=== PATIENT | male | born 1955 | race Caucasian/White ===

== ENCOUNTER 2017-09-08 23:26 | Emergency (ER) | payer OTHER | END 2017-09-09 01:19 | disposition home or self-care (01) | LOC: D.ER 23:26 | DX: R11.10 Vomiting, unspecified (principal); R42 Dizziness and giddiness; I10 Essential (primary) hypertension; I25.10 Atherosclerotic heart disease of native coronary artery without angina pectoris; R00.1 Bradycardia, unspecified ==

== ENCOUNTER → 2019-05-20 08:29 | Outpatient (CLI) | payer OTHER ==
--- NOTE | 2019-05-22 16:51 | ST ---
PATIENT:APARNA ADLER MEDICAL RECORD: [id number] SEX: M LOCATION:[facility] ORDER #: ADMISSION DATE: 05/20/19 AGE OF PATIENT: 64 REFERRING PHYSICIAN: INTERPRETING PHYSICIAN: ALINE PALUMBO MD DATE OF SERVICE: 05/20/2019 INDICATION: Angina, coronary artery disease, shortness of breath, hypertension, cardiomyopathy. DESCRIPTION OF PROCEDURE: He was exercised on standard Lexiscan protocol with 28 mCi of sestamibi injected at peak stress, 9 mCi was previously for rest images. FINDINGS: Gated SPECT reveals a dilated cardiomyopathy, ejection fraction 33%. SPECT imaging: Cardiolite was used as myocardial perfusion agent. There is a fixed perfusion defect inferiorly. This includes the basal, mid, apical, inferior segments compatible with previous inferior myocardial infarction; however, there is reversibility laterally and anteriorly. This includes the basal mid apical lateral segments, basal mid apical anterior segments as well. The degree of reversibility is mild to moderate. The amount of myocardium involved is very large. OVERALL IMPRESSION: This is a high risk abnormal nuclear stress test, fixed perfusion defect inferiorly, reversible ischemia anteriorly and laterally suggestive of multivessel coronary artery disease. We will proceed with coronary angiography as followup study. TRANSINT:[id number] Voice Confirmation ID: [id number] DOCUMENT ID: [id number] ALINE PALUMBO MD at 1651 CC: ROSY BENTLEY [id number] DICTATION DATE: 05/20/19 1644 MULTIMEDIA PRODUCTION ASSISTANT: 05/21/19 0052 DEP CLI 05/20/19 [id number] [place] [address]
== END | disposition home or self-care (01) ==
LOC: D.HCCARDIO 08:29
PROVIDERS: ATTEND Internal Medicine Interventional Cardiology
DX: I25.10 Atherosclerotic heart disease of native coronary artery without angina pectoris (principal)

== ENCOUNTER 2019-06-10 09:59 | Outpatient (CLI) | payer OTHER ==
[~2019-06-10] VITALS: Ht 188 cm; Wt 129.5 kg
--- NOTE | ~2019-06-10 | OP ---
PATIENT NAME: APARNA ADLER MEDICAL RECORD: [id number] :57 LOCATION:[facility] ADMISSION DATE: SURGEON: ALINE PALUMBO MD DATE OF OPERATION: 06/10/2019 DATE OF SERVICE: 06/10/2019 PROCEDURES: 1. PTCA stent of LAD diagonal. 2. PTCA stent of left circumflex. 3. IFR LAD. 4. IFR RCA. 5. Left heart catheterization. 6. Selective coronary angiography. 7. Left ventriculogram. INDICATION: Angina, coronary artery disease, abnormal nuclear stress test. DESCRIPTION OF PROCEDURE IN DETAIL: After informed consent was obtained and after detailed explanation of risks, benefits as well as alternative therapies, the patient elected to proceed with angiogram and angioplasty. The right radial area was prepped and draped in normal sterile fashion. Right radial artery was cannulated via modified Seldinger technique with placement of 6-[place] sheath. All catheters exchanged through this sheath. FINDINGS: Left ventriculogram was performed in standard 30-degree MOCTEZUMA view, reveals good cardiac wall motion, ejection fraction 55%. SELECTIVE CORONARY ANGIOGRAPHY: 1. Left main is with no significant angiographic disease. 2. Left anterior descending has previously placed stents, has a questionable area of in-stent restenosis; however, IFR was normal. LAD diagonal system has 95% stenosis in the proximal aspect. 3. Left circumflex has 85-90% stenosis in the proximal aspect. This correlates with perfusion defect on nuclear stress testing. 4. The right coronary has a questionable stenosis proximally; however, IFR was normal. PTCA STENT OF THE LAD DIAGONAL: The stent used was a 2.0 x 12 mm [place]. Result was 0% residual stenosis. PTCA STENT OF THE LEFT CIRCUMFLEX: The stent used was a 3.5 x 15 mm [place]. Result was 0% residual stenosis. OVERALL IMPRESSION: Successful percutaneous transluminal coronary angioplasty stent of the left anterior descending diagonal and left circumflex going from 90% to 95% initial stenosis to 0% residual. TRANSINT:[id number] Voice Confirmation ID: [id number] DOCUMENT ID: [id number] OPERATIVE REPORT [id number] APARNA ADLER ALINE PALUMBO MD CC: [id number] DICTATION DATE: 06/10/19 1238 DEPARTMENT SECRETARY: 06/10/19 1248 [id number] [place] [address]
--- NOTE | ~2019-06-10 | HEMODYNAMI ---
PATIENT:APARNA ADLER MEDICAL RECORD: [id number] : 57 LOCATION:[facility] ADMISSION DATE: 06/10/19 Generatedon:06/10/201912:36 Patient name: APARNA ADLER Patient #: [id number] SSN: [id number] : 1955 Date of study: 06/10/2019 Page: Of Hemodynamic Procedure Report Patient Data Patient Demographics Procedure consent was obtained First Name: APARNA Gender: Male Last Name: VITOR : 1955 Patient #: [id number] Age: 64 year(s) Race: SSN: [id number] Additional ID: [id number] Contact details Address: [address] [place] [address] State: [place] City: [place] Zip code: [address] Past Medical History Allergies Allergen Reaction Date Comments Reported Other allergy 06/10/2019 statins Admission Admission Data Admission Date: 06/10/2019 Admission Time: 9:59 Arrival Date: 06/10/2019 Arrival Time: 11:30 Admit Source: Other Insurance Payor: Private health insurance Height (in.): 73.62 BSA: 2.51 (m2) Height (cm.): 187 BMI: 36.89 (kg/m2) Weight (lbs.): 284.4 Weight (kg.): 129 Lab Results Lab Result Date: 06/10/2019 Lab Result Time: 0:00 Biochemistry Name Units Result Min Max BUN mg/dl 18 --(---*)-- 7 18 Creatinine mg/dl 0.9 --(-*--)-- 0.6 1.3 CBC Name Units Result Min Max Hemoglobin g/dl 14.7 --(-*--)-- 13.5 17.5 Procedure Procedure Types Cath Procedure Diagnostic Procedure LHC LH w/Coronaries FFR/IVUS FFR Initial FFR Additional Sedation Charges Moderate Sedation up to 15 minutes Moderate Sedation up to 45 minutes PCI Procedure Coronary Stent Coronary Stent Initial x2 Procedure Description Procedure Date Procedure Date: 06/10/2019 Procedure Start Time: 12:06 Procedure End Time: 12:31 Procedure Staff Name Function Perico Yan RT Scrub Konstantin Guerrero RN Nurse Jamin Stephens MD Performing Physician Denisse Velazquez RT Scrub Mary Rivas RN Nurse Jamila Arnett RT Monitor Procedure Data Cath Procedure Fluoroscopy Diagnostic fluoroscopy Total fluoroscopy Time: 7.1 time: 7.1 min min Diagnostic fluoroscopy Total fluoroscopy dose: dose: 1671 mGy 1671 mGy Contrast Material Contrast Material Type Amount (ml) Isovue 300 130 Entry Location Entry Primary Successful Side Size Upsize Upsize Entry Closure Mistry ccessful Closure Location (Fr) 1 (Fr) 2 (Fr) Remarks Device Remarks Radial Right 6 Fr Mechanical artery Short Compression Estimated blood loss: 5 ml Diagnostic catheters Device Type Used For End Catheter Placement DIAGNOSTIC [place] 110cm 5 Multi-vessel Fr catheter ([id number]) Angiography Procedure Complications No complications Procedure Medications Medication Administration Route Dosage Oxygen etCO2 Nasal cannula 2 l/min Lidocaine 2% added to field 20 Heparin Flush Bag added to field 2 bags (1000units/500ml NS) 0.9% NaCl I.V. 100 ml/hr Radial Cocktail I.A. 1 syringe (Verapamil 2mg/Nitro 400mcg/Heparin 1500units) Versed I.V. 2 mg Fentanyl I.V. 100 mcg Versed I.V. 2 mg Fentanyl I.V. 50 mcg Heparin Bolus I.V. 4000 units Integrilin (Bolus I.V. 11.3 ml 2mg/ml) Plavix P.O. 600 mg Hemodynamics Rest BSA: 2.51 (m2) HGB: 14.7 (g/dl) O2 Consumption: Estimated: 280.59 (ml/min) O2 Co nsumption indexed: Estimated:111.79 (ml/min/m) Heart Rate: 56 (bpm) Pressure Samples Time Site Value (mmHg) Purpose Heart Use Rate(bpm) 12:08 LV 88/68,65 Snapshot 127 Snapshots Pre Cath Intra NCS Post Cath Vital Signs Time Heart Resp SPO2 etCO2 NIBP (mmHg) Rhythm Pain Sedation Rate (ipm) (%) (mmHg) Status Level (bpm) 11:12:31 57 16 99 36.6 160/96(117) SB 0 (11) 10(A) , No pain 11:16:37 59 14 100 47.8 156/100(120) SB 0 (11) 10(A) , No pain 11:21:35 56 15 98 2.2 Measuring SB 0 (11) 10(A) , No pain 11:27:11 54 15 99 20.2 152/87(115) SB 0 (11) 10(A) , No pain 11:37:55 59 16 97 22.4 142/92(119) SB 0 (11) 10(A) , No pain 11:42:08 56 15 98 11 135/93(112) SB 0 (11) 10(A) , No pain 11:46:18 56 18 97 10.4 136/100(116) SB 0 (11) 9(A) , No pain 11:50:30 55 15 96 14.9 144/85(118) SB 0 (11) 9(A) , No pain 11:54:44 57 18 96 6.7 132/90(109) SB 0 (11) 9(A) , No pain 11:58:50 59 16 98 9.7 129/94(110) SB 0 (11) 9(A) , No pain 12:02:58 58 13 98 10.4 129/90(103) SB 0 (11) 9(A) , No pain 12:07:04 58 13 97 11.9 138/98(113) SB 0 (11) 9(A) , No pain 12:11:16 67 14 96 13.4 134/85(109) SB 0 (11) 9(A) , No pain 12:15:23 67 13 98 19.4 132/92(109) SB 0 (11) 9(A) , No pain 12:19:29 63 15 97 36.6 144/95(119) SB 0 (11) 9(A) , No pain 12:23:39 59 15 97 14.2 141/96(126) SB 0 (11) 9(A) , No pain 12:27:49 59 19 98 14.9 142/95(116) SB 0 (11) 10(A) , No pain 12:31:59 56 14 99 0 151/93(127) SB 0 (11) 10(A) , No pain Medications Time Medication Route Dose Verified Delivered Reason Not es Effectiveness by by 11:27:30 Oxygen etCO2 2 l/min Jamin Pryor used for Nasal Tauth MD Guerrero automatic fabric cutter cannula 11:27:39 Lidocaine 2% added 20ml Jamin Neville for local to vial Angelo Stephens MD anesthetic field 11:27:46 Heparin Flush added 2 bags Jamin Neville used for Bag to Angelo Stephens MD procedure (1000units/500ml field NS) 11:28:00 0.9% NaCl I.V. 100 Jamin Pryor Per physician ml/hr Angelo Guerrero RN 11:30:34 Radial Cocktail I.A. 1 Jamin Pryor for (Verapamil syringe Angelo Guerrero RN vasodilation 2mg/Nitro 400mcg/Hepari 11:35:54 Versed I.V. 2 mg Jamin Pryor for sedation Angelo Guerrero RN 11:36:00 Fentanyl I.V. 100 mcg Jamin Pryor for sedation Angelo Guerrero RN 11:43:23 Versed I.V. 2 mg Jamin Pryor for sedation Angelo Guerrero RN 11:43:31 Fentanyl I.V. 50 mcg Jamin Pryor for sedation Angelo Guerrero RN 12:14:05 Heparin Bolus I.V. 4000 Jamin Hernandez for betsy ified units Angelo Rivas anticoagulation with Dr. KENDALL Stephens 12:14:20 Integrilin I.V. 11.3 ml Jamin Gardnera for was sourav (Bolus 2mg/ml) Angelo Rivas antiplatelet 8.7mL RN therapy 12:15:43 Plavix P.O. 600 mg Jamin Hernandez for Angelo Rivas antiplatelet RN therapy Procedure Log Time Note 10:39:17 Diagnostic Cath Status : Elective 10:43:51 ACC Patient presents with Non-STEMI CCS Anginal Class 3--Marked limitation of physical activity, angina occurs with ordinary activity.. 10:44:35 ACCPatient has been prescribed/administered the following anti-anginal medication within the last 2 weeks: Beta Kirill, ARB 10:44:40 Procedure Status Elective Heart Cath (OP). 10:44:43 Konstantin Guerrero RN sent for patient. Start room use. 10:44:44 Time tracking: Regular hours (M-F 7:00 - 5:00) 10:44:48 Plan of Care:Hemodynamics will remain stable., Cardiac rhythm will remain stable., Comfort level will be maintained., Respiratory function will remain adequate., Patient/ family verbilizes understanding of procedure., Procedure tolerated without complication., Recovers from procedure without complications.. 10:45:59 Informed consent obtained and on chart 10:47:42 Admit Source: Other 10:47:53 Arrival Date: 06/10/2019 11:30:00 AM 10:48:08 Insurance Payor : Private health insurance 10:50:20 Patient Height : 73.62 inches 10:50:24 Patient Weight : 284.4 lbs 11:10:37 Patient received from Pre/Post Procedure Room to CCL 2 Alert and oriented. Tansferred to table in Supine position. 11:10:39 Correct patient and procedure confirmed by team. 11:10:39 Warm blankets applied, and lan hugger turned on for patient comfort. 11:10:40 ECG and BP/O2 sat monitors applied to patient. 11:10:47 Vital chart was started 11:16:50 Baseline sample Acquired. 11:16:53 Rhythm: sinus rhythm 11:16:55 Full Disclosure recording started 11:16:59 H&P Date Dictated: 06/10/2019 Within 30 days and on chart., H&P Addendum completed by physician on day of procedure. (MUST COMPLETE FOR ALL OUTPATIENTS). 11:17:01 Pre-op teaching completed and patient verbalized understanding. 11:17:01 Pre-procedure instructions explained to patient. 11:17:03 Family in patients room. 11:17:04 Patient NPO since Midnight. 11:17:16 Patient allergic to Other allergystatins 11:17:27 Is the patient allergic to Iodine/contrast media? No. 11:17:28 Was the patient premedicated? No 11:17:30 Is patient on blood thinner?No 11:17:40 Patient diabetic? Yes. 11:17:41 If diabetic: On Metformin? No 11:18:44 Previous problem with sedation/anesthesia? No ? 11:18:46 Snore? Yes 11:18:47 Sleep apnea? No 11:18:48 Opens mouth fully? Yes 11:18:48 Deviated septum? No 11:18:49 Sticks out tongue? Yes 11:18:51 Airway obstruction? No ? 11:18:53 Dentures? No ? 11:18:59 Pre procedure: right dorsailis pedis pulse 2+ Normal; easily identifiable; not easily obliterated 11:19:01 Pre procedure: left dorsailis pedis pulse 2+ Normal; easily identifiable; not easily obliterated 11:19:03 Patient pain scale 0/10 ?. 11:19:08 IV patent on arrival in left forearm with 0.9% NaCl at [facility]. 11:19:10 Lab results completed and on chart. 11::20 Right Radial & Right Groin area was prepped with chlora-prep and draped in sterile fashion :: Sharps counted by scrub and verified by R.N. :: Alarms reviewed by R. N. 11::11 Lab Result : Hemoglobin 14.7 g/dl 11::11 Lab Result : Creatinine 0.9 mg/dl 11:: Lab Result : BUN 18 mg/dl 11:24:58 Vital chart was stopped 11::23 Zero performed for pressure channel P1 11:27:30 Oxygen 2 l/min etCO2 Nasal cannula was administered by Konstantin Guerrero RN; used for procedure; 11:27:39 Lidocaine 2% 20ml vial added to field was administered by Jamin Stephens MD; for local anesthetic; 11:27:46 Heparin Flush Bag (1000units/500ml NS) 2 bags added to field was administered by Jamin Stephens MD; used for procedure; 11:28:00 0.9% NaCl 100 ml/hr I.V. was administered by Konstantin Guerrero RN; Per physician; 11:30:34 Radial Cocktail (Verapamil 2mg/Nitro 400mcg/Heparin 1500units) 1 syringe I.A. was administered by Konstantin Guerrero RN; for vasodilation; 11::43 --------ALL STOP TIME OUT------ 11:30:43 Physician arrived 11:30:44 Final Timeout: patient, procedure, and site verified with staff and physician. All members of the team are in agreement. 11:30:47 Right Radial & Right Groin site verified by team. 11:30:50 Fire Safety Assessment: A--An alcohol-based skin anteseptic being used preoperatively., C--Open oxygen or nitrous oxide is being used., D--An ESU, laser, or fiber-optic light is being used. 11:30:53 Physical assessment completed. ASA score P 2 - A patient with mild systemic disease as per Jamin Stephens MD. 11:31:33 1) 90+ Normal kidney functon but urine findings or structural abnormalities or genetic trait point to kidney disease. 11:31:59 Maximum allowable contrast dose (3.7 X eGFR X 0.75)250 ml. 11:32:04 Sedation plan: IV Moderate Sedation Medication:Versed, Fentanyl 11:35:54 Versed 2 mg I.V. was administered by Konstantin Guerrero RN; for sedation; 11:36:00 Fentanyl 100 mcg I.V. was administered by Konstantin Guerrero RN; for sedation; 11:36:45 Vital chart was started 11:43:23 Versed 2 mg I.V. was administered by Konstantin Guerrero RN; for sedation; 11:43:31 Fentanyl 50 mcg I.V. was administered by Konstantin Guerrero RN; for sedation; 12:06:16 Procedure started. 12:06:52 Local anesthetic to right radial artery with Lidocaine 2% by Jamin Stephens MD.INITIAL ACCESS ONLY 12:07:01 A 6 Fr Short sheath was inserted into the Right Radial artery 12:07:06 Use device set Radial Dx or PCI 12:07:07 ACIST Syringe (35053) opened to sterile field. 12:07:08 Bag Decanter () opened to sterile field. 12:07:08 Medline Cath Pack ([id number]) opened to sterile field. 12:07:09 Tegaderm 4 x 4 (1626W) opened to sterile field. 12:07:09 ACIST Manifold (12639) opened to sterile field. 12:07:09 ACIST Hand Control (46151) opened to sterile field. 12:07:10 MBrace Wrist Support ([id number]) opened to sterile field. 12:07:11 SHEATH 6FR RAIN (8232508) opened to sterile field. 12:07:12 EMERALD Guide Wire (963-124) opened to sterile field. 12:07:38 A DIAGNOSTIC Carbon[place] 110cm 5 Fr catheter (392494) was advanced over the wire and used for Multi-vessel Angiography. 12:08:42 LV hemodynamics recorded. 12:08:43 LV gram done using MOCTEZUMA 12:08:46 Injector settings: Ml/sec: 5, Volume: 15, 12:08:52 EF : 55 % 12:09:08 LCA angiography performed. 12:09:11 Injector settings: Ml/sec: 3, Volume: 6, 12:10:19 CHOICE PT Extra Support 182cm wire ([id number]) opened to sterile field. 12:10:20 [place] Verrata Plus pressure wire (59817X) opened to sterile field. 12:10:21 INFLATOR Merit BasixCompak (JT9228) opened to sterile field. 12:10:44 GUIDE 6FR XBLAD 3.5 catheter ([id number]) opened to sterile field. 12:10:55 RCA angiography performed. 12:10:57 Injector settings: Ml/sec: 3, Volume: 6, 12:10:59 Catheter removed. 12:11:00 Proceeding to intervention. 12:12:00 GUIDE 6FR AR 1.0 catheter ([id number]) opened to sterile field. 12:13:34 6 Fr ar 1 guide catheter was inserted over the wire 12:13:45 FFR/IFR wire advanced. 12:13:50 Wire advanced across lesion. 12:14:05 Heparin Bolus 4000 units I.V. was administered by Mary Rivas RN; for anticoagulation; verified with Dr. Stephens 12:14:20 Integrilin (Bolus 2mg/ml) 11.3 ml I.V. was administered by Mary Rivas RN; for antiplatelet therapy; wasted 8.7mL 12:15:43 Plavix 600 mg P.O. was administered by Mary Rivas RN; for antiplatelet therapy; 12:16:06 unable to normalize verrata IFR wire; defective 12:16:13 [place] Verrata Plus pressure wire (69831Q) opened to sterile field. 12:16:35 Wire removed. 12:16:39 FFR/IFR wire advanced. 12:16:42 Baseline FFR 1. 12:16:43 Wire advanced across lesion. 12:17:48 mRCA lesion measured at 0.97 with IFR 12:17:58 Guide catheter removed. 12:17:58 Wire removed. 12:18:10 6 Fr xblad 3.5 guide catheter was inserted over the wire 12:18:24 FFR/IFR wire advanced. 12:18:28 Baseline FFR 1. 12:18:31 Wire advanced across lesion. 12:21:12 mLAD lesion measured at 0.91 with IFR 12:21:17 Wire removed. 12:21:22 choice pt wire advanced. 12:21:27 Wire advanced across lesion. 12:23:50 ACC Pre-intervention KOLBY Flow is 3. 12:24:04 Place stent Inflation Number: 1 A LATA RX 2.0 x 12 stent ([id number]) was prepped and advanced across the 1st Diag 95. The stent was deployed at 15 SUSANNE for 0:10 (min:sec) . 12:24:42 Wire redirected to lcx. 12:26:53 Place stent Inflation Number: 1 A LATA RX 3.5 x 15 stent ([id number]) was prepped and advanced across the Mid CX 90. The stent was deployed at 15 SUSANNE for 0:10 (min:sec) . 12:27:02 ACC Post-intervention KOLBY Flow is 3. 12:27:03 TR BAND Large ([id number]) opened to sterile field. 12:28:37 Wire removed. 12:28:37 Stent catheter was removed intact over wire. 12:28:38 Guide catheter removed. 12:28:52 Sheath removed intact; hemostasis achieved with Mechanical Compression to the Right Radial artery. 12:28:58 Procedure ended.(Physican Out) 12:29:06 Fluoroscopy time 07.10 minutes. 12:29:14 Fluoroscopy dose: 1671 mGy 12:29:14 Flurop Dose total: 1671 12:29:20 Dose Area Product 88584 mGy/cm. 12:29:29 Contrast amount:Isovue 300 130ml. 12:29:30 Sharps counted by scrub and verified by R.N. 12:30:05 TR band inflated with 9cc of air. 12:30:06 Insertion/operative site no bleeding no hematoma. 12:30:13 Post right radial artery:stable 12:30:17 Post Procedure Pulses reassessed and unchanged 12::21 Post procedure rhythm: unchanged. 12:30:24 Estimated blood loss: 5 ml 12:30:25 Post procedure instruction explained to patient.Patient verbalizes understanding. 12:30:26 Patient needs reinforcement of post procedure teaching. 12:31:19 Procedure type changed to Cath procedure, Diagnostic procedure, LHC, LHC w/Coronaries, FFR/IVUS, FFR Initial, FFR Additional, Sedation Charges, Moderate Sedation up to 15 minutes, Moderate Sedation up to 45 minutes, PCI procedure, Coronary Stent, Coronary Stent Initial x2 12:31:20 Procedure and supply charges have been captured, reviewed, submitted and are correct. 12:31:25 Procedure Complication : No complications 12:31:28 See physician's report for complete and final results. 12:31:32 Report given to Pre/Post Procedure Room. 12::35 Patient transfered to Pre/Post Procedure Room with Stretcher. 12::38 Full Disclosure recording stopped 12::38 Procedure ended. 12:31:47 ACC-PCI Only Patient was given prescriptions, or instructed by Jamin Stephens MD to start/continue the following medications upon discharge: Plavix 12:31:49 End room use (Document Last) Intervention Summary Intervention Notes Time ActionType Lesion and Equipment Used Action# Pressure Duration Attributes 12:24:04 Place stent 1st Diag LATA RX 2.0 x 1 15 00:10 12 stent ([id number]) 12:26:53 Place stent Mid CX LATA RX 3.5 x 1 15 00:10 15 stent ([id number]) Device Usage Item Name Manufacture Quantity Catalog Number Hospital Part Current Minimal Lot# / Charge Number Stock Stock Serial# Code ACIST Syringe Acist 1 51828 625459 937679 725266 20 (93123) Medical Systems Inc Medline Cath Medline 1 [id number] 465298 80774 332715 5 Pack ([id number]) Bag Decanter Microtek 1 887227 86679 313585 5 () Medical Inc. ACIST Hand Acist 1 85084 870226 086615 835923 5 Control Medical (16063) Systems Inc ACIST Manifold Acist 1 71975 880358 803039 065046 5 (73305) Medical Systems Inc Tegaderm 4 x 4 3M 1 1626W 117648 786918 016857 5 (1626W) MBrace Wrist Advanced 1 140-0250-00 699494 10221 081468 5 Support Vascular (755496853) Dynamics SHEATH 6FR Cardinal 1 9618588 992134 8291642 442830 5 RAIN (1090580) [facility] EMERALD Guide Cardinal 1 502-455 096150 039229 548896 5 Wire (502-477) Health DIAGNOSTIC Terumo 1 405013 719968 688030 190167 5 Carbon[place] 110cm 5 Fr catheter (904486) CHOICE PT Ramah 1 [id number] 033555 097196 851010 5 Extra Support Scientific 182cm wire (4378024R4) [place] 2 69764Q 735927 389145153 078087 5 Verrata Plus pressure wire (81176S) INFLATOR Merit Merit 1 RX1277 395294 137275 277611 15 Ala-Septic Medical (UV8840) GUIDE 6FR Cardinal 1 97232144 635340 577904 725121 10 XBLAD 3.5 Health catheter (32722126) GUIDE 6FR AR Medtronic 1 [id number] 051598 76595 096793 1 1.0 catheter (EC5RA54) LATA RX 2.0 x Medtronic 1 [id number] 729895 5216698 326137 5 [id number] 12 stent ([id number]) LATA RX 3.5 x Medtronic 1 [id number] 826366 1058335 466264 5 [id number] 15 stent ([id number]) TR BAND Large Terumo 1 [id number] 196048 332432 572694 40 ([id number]) Signature Audit [place] Stage Time Signature Unsigned Intra-Procedure 06/10/2019 Jamila Arnett 12:36:08 PM RT(R) Signatures Nurse : Konstantin Guerrero RN Signature : Date : Time : Performing Physician : Signature : Jamin Stephens MD Date : Time : Nurse : Mary Rivas RN Signature : Date : Time : Monitor : [facility] RT Signature : Date : Time : [address] [place] [address]
[2019-06-10] MEDS ORDERED: MOBIC7.5 MG PO (10:04)
[2019-06-10] MEDS ORDERED: TENORMIN25 MG PO (10:04)
[2019-06-10] MEDS ORDERED: LOSARTAN/HCT TAB 100 (10:05)
[2019-06-10] MEDS ORDERED: LOSARTAN/HCT TAB 100 PO (10:06)
[2019-06-10] MEDS ORDERED: CARDURA2 MG PO (10:07)
[2019-06-10] MEDS ORDERED: FEXOFENADINE HC60 MG PO (10:08)
[2019-06-10] MEDS ORDERED: METFORMIN HCL500 M1 PO (10:08)
[2019-06-10] MEDS ORDERED: MIRAPEX0.5 MG PO (10:09)
[2019-06-10 10:29] VITALS: BP 139/86; Ht 188 cm; Wt 129.5 kg
[2019-06-10 10:42] LABS: HEMATOCRIT 42.4 % (42.0-54.0); HEMOGLOBIN 14.7 g/dL (13.5-17.5); MCH 29.8 pg (26.0-34.0); MCHC 34.7 g/dL (31.0-37.0); MCV 85.8 fL (80.0-100.0); MEAN PLATELET VOLUME 10.1 fL (7.4-10.4); NEUTROPHILS 65.7 % (40-80); PLATELET COUNT 174 10x3/uL (130-400); RBC 4.94 10x6/uL (4.20-6.10); RDW 13.1 % (11.5-14.5)
[2019-06-10 11:10] LABS: ALT (SGPT) 40 U/L (10-68); CALC OSMOLALITY 279 mosm/kg (275-300); CALCIUM 8.4 mg/dL (8.5-10.1); CARBON DIOXIDE 31.1 mmol/L (21.0-32.0); CHLORIDE - SERUM 103 mmol/L (98-107); CHOL - HDL RATIO 5.5 ratio (2.3-4.9); CHOLESTEROL, TOTAL 154 mg/dL (0-200); CREATININE - SERUM 0.9 mg/dL (0.6-1.3); GLUCOSE 129 mg/dL (74-106); HDL CHOLESTEROL 28 mg/dL (32-96); LDL CHOLESTEROL 93 mg/dL (0-100); LDL-HDL RATIO 3.3 ratio (1.5-3.5); POTASSIUM - SERUM 3.9 mmol/L (3.5-5.1); SODIUM 138 mmol/L (136-145); TRIGLYCERIDE 167 mg/dL (30-200); UREA NITROGEN 18 mg/dL (7-18); eGFR NON AFRICAN AMERICAN > 90 mL/min (90-120)
--- NOTE | 2019-06-10 12:57 | NUR ---
RECEIVED PT FROM SALES APPRENTICE. PT IS ALERT, DENIES ANY C/O PAIN OR NAUSEA. TR BAND CDI, FINGERS WARM AND CAP REFILL IS BRISK. VSS. FAMIY AT BEDSIDE, CALL LIGHT IN REACH.
[2019-06-10] MEDS ORDERED: PLAVIX75 MG PO (13:05)
[2019-06-10] MEDS ORDERED: BAYER CHEWABLE81 MG PO (13:05)
--- NOTE | 2019-06-10 13:15 | NUR ---
SANDWICH AND PO FLUIDS SERVED. TR BAND IS CI, FINGERS WARM AND CAP REFILL IS BRISK. PT IS ALERT AND DENIES ANY C/O. VSS. FAMILY AT BEDSIDE.
--- NOTE | 2019-06-10 13:45 | NUR ---
PT IS SITTING UP IN BED, AT BEDSIDE. PT IS ALERT, DENIES ANY C/O. TR BAND IS CDI, FINGERS WARM AND CAP REFILL IS BRISK. PT DENIES ANY N/V DEFICIT TO HAND. VSS.
--- NOTE | 2019-06-10 14:06 | NUR ---
PT SLEEPING INTERMITTENTLY, AWAKENS EASILY. RESP WITH EASE ON O2 AT 2LPM VIA NC. SINUS BELKIS AT 59, DENIES ANY C/O CHEST PAIN. TR BAND IS CDI, FINGERS WARM AND CAP REFILL IS BRISK. AT BEDSIDE, CALL LIGHT IN REACH.
--- NOTE | 2019-06-10 14:39 | NUR ---
PT SLEEPING, RESP WITH EASE ON O2 AT 2LPM VIA NC. BP IS 147/88, SINUS BELKIS AT 57. TR BAND IS CDI, FINGERS WARM AND CAP REFILL IS BRISK. AT BEDSIDE.
--- NOTE | 2019-06-10 14:51 | NUR ---
PT DENIES ANY C/O. TR BAND IS CDI, FINGERS WARM AND CAP REFILL IS BRISK. SINUS BELKIS AT 59, BP IS 145/89. AT BEDSIDE, DENIES ANY NEEDS AT THIS TIME.
--- NOTE | 2019-06-10 15:30 | NUR ---
PT RESTING COMFORTABLY. RIGHT RADIAL TR BAND IN PLACE. 4cc OF AIR REMOVED FROM TR BAND. NO BLEEDING/HEMATOMA NOTED. VSS. NO OTHER NEEDS AT THIS TIME.
--- NOTE | 2019-06-10 15:45 | NUR ---
4cc OF AIR REMOVED FROM TR BAND. PT TOLERATED WELL. VSS. FAMILY AT BEDSIDE. CALL LIGHT WITHIN REACH.
--- NOTE | 2019-06-10 16:05 | NUR ---
TR BAND REMOVED AND DRESSING APPLIED. NO BLEEDING/HEMOTOMA NOTED. RIGHT WRIST BRACE IN PLACE. PT INSTRUCTED TO KEEP ON FOR 2 HOURS AFTER ARRIVAL HOME AND THEN HE MAY REMOVED. RIGHT ARM PIV D/C'D WITH CATH TIP INTACT. TOLERATED WELL. PT INSTRUCTED TO GET UP AND DRESSED. FAMILY AT BEDSIDE TO ASSIST.
--- NOTE | 2019-06-10 16:15 | NUR ---
DISCUSSED DISCHARGE INSTRUCTIONS WITH PT AND PT'S FAMILY. THEY VOICED UNDERSTANDING. PT AMBULATED TO RESTROOM. VOIDED WITHOUT DIFFICULTY. RIGHT WRIST DRESSING C/D/I. NO S/S OF HEMATOMA NOTED.
--- NOTE | 2019-06-10 16:27 | NUR ---
PT TAKEN OUT TO VEHICLE BY WHEELCHAIR. RIGHT WRIST DRESSING IN PLACE. NO BLEEDING/HEMATOMA NOTED. ALL BELONGINGS AND PAPERWORK IN HAND. NO S/S OF DISTRESS NOTED.
== END 2019-06-10 16:30 | disposition home or self-care (01) ==
LOC: D.CATH 09:59
PROVIDERS: ATTEND Internal Medicine Interventional Cardiology
DX: I25.119 Atherosclerotic heart disease of native coronary artery with unspecified angina pectoris (principal); Z01.812 Encounter for preprocedural laboratory examination

== ENCOUNTER 2020-03-20 19:39 | Observation (INO) | payer OTHER ==
[~2020-03-20] VITALS: Ht 188 cm; Wt 129.5 kg
--- NOTE | ~2020-03-20 | CN ---
PATIENT NAME:APARNA ADLER MEDICAL RECORD: [id number] : 57 LOCATION:[facility] D.2114 ADMIT DATE: 03/20/20 ACCOUNT: [id number] CONSULTING PHYSICIAN: JACQUELIN FERNANDEZ MD REFERRING PHYSICIAN: OTTO LANTIGUA MD DATE OF CONSULTATION: 03/21/2020 HISTORY OF PRESENT ILLNESS: A 65-year-old gentleman with a known history of coronary artery disease, status post intervention back in May of this year, had onset of chest tightness and pressure radiating to back with nausea yesterday, has been working fairly hard in the yard digging holes, etc., kind of a shortness of breath, reminiscent of previous angina, presented to the ER, found to have elevated cardiac enzymes consistent with NSTEMI. We are asked to see him concerning his cardiovascular status. PAST MEDICAL HISTORY: Includes; 1. History of dyslipidemia. 2. Diabetes mellitus. 3. Known history of coronary artery disease as described above. 4. Hypertension. MEDICATIONS: Typically include metformin 1 gram b.i.d., Mobic 7.5 every day, Cardura 2 mg p.o. daily, atenolol 25 mg p.o. every day. ALLERGIES: HMG-COA REDUCTASE INHIBITORS. SOCIAL HISTORY: Nonsmoker, nondrinker. Easily takes care of his ADLs, stays quite active. REVIEW OF SYSTEMS: The patient reports easy bruising but reports no swollen glands. The patient reports no fever, no night sweats, no significant weight gain, no significant weight loss. No significant exercise tolerance. The patient reports no dry eyes, no irritation, no vision change. Patient reports no difficulty hearing and no ear pain. Patient reports no frequent nose bleeds or nose and sinus problems. Patient reports on arm pain on exertion. No shortness of breath while lying down. No history of heart murmur. Patient reports no cough, no wheezing or coughing up blood. Patient reports no abdominal pain, no vomiting. Normal appetite. No diarrhea and not vomiting blood. No nausea and no constipation. Patient reports no incontinence. No difficulty urinating. No hematuria. No increased frequency. Patient reports no muscle aches. No weakness, no arthralgias, no back pain. No swelling of the extremities. Patient reports no abnormal mole, no jaundice, no rashes. Reports no loss of consciousness. No weakness and no numbness. No seizures, dizziness, or headaches. The patient reports no depression, no sleep disturbance, feeling safe in a relationship and no alcohol abuse. Patient reports on fatigue. Reports no runny nose or sinus pressure. No itching, no hives, and no frequent sneezing. PHYSICAL EXAMINATION: GENERAL: Well-developed, well-nourished gentleman, in no acute distress, appears stated age. VITAL SIGNS: Blood pressure 113/71, pulse 73 and regular. HEENT: Normocephalic, atraumatic. NECK: No JVD or bruit. HEART: Regular. Questionable S4 gallop. CONSULT REPORT [id number] APARNA ADLER LUNGS: Good air excursion. ABDOMEN: Soft, nontender. EXTREMITIES: Pulses 2+ with no edema. DIAGNOSTIC DATA: EKG shows nonspecific ST-T changes inferolaterally. IMPRESSION: NSTEMI. No history of coronary artery disease. PLAN: Diagnostic angiography, intervention based on above. TRANSINT:[id number] Voice Confirmation ID: [id number] DOCUMENT ID: [id number] JACQUELIN FERNANDEZ MD CC: [id number] DICTATION DATE: 03/21/2046 LABEL PASTER: 03/21/20 1431 ADM IN [facility] [address] [place] [address]
--- NOTE | ~2020-03-20 | EC ---
PATIENT:APARNA ADLER DATE OF SERVICE: 03/20/20 SEX: M MEDICAL RECORD: [id number] DATE OF : 57 LOCATION:D.M2 D.211 AGE OF PATIENT: 65 ADMISSION DATE: 03/20/20 REFERRING PHYSICIAN: INTERPRETING PHYSICIAN: JACQUELIN FERNANDEZ MD ECHOCARDIOGRAM REPORT ECHO CHARGES 4 ECHO COMPLETE Date: 03/21/20 CLINICAL DIAGNOSIS: CP ECHOCARDIOGRAPHIC MEASUREMENTS (adult normal given) AC root (d.<3.7cm) 3.8 cm LV Septum d (<1.2 cm> 1.2 cm Valve Excursion 2.3 cm LV Septum (systole) 1.5 cm Left Atria (s.<4.0cm> 5.1 cm LVPW d(<1.2cm) 1.2 cm RV (d.<2.3cm) 3.1 cm LVPW (sytole) 1.9 cm LV diastole(<5.6CM) 6.6 cm MV E-F(>70mm/sec) cm LV systole 4.9 cm LVOT Diameter 2.1 cm MV exc.(>10mm) cm Est.ejection fraction (50-75%) % DOPPLER: LVIT cm/sec A 54.0 cm/sec E 102 cm/sec LA cm/sec RVSP 25.1 mmHg LVOT 102 cm/sec AOP1/2T m/s Asc. Ao 150 cm/sec RVOT 63.0 cm/sec RA cm/sec PA 83.0 cm/sec AV Gradient Peak 9.0 mmHg AV Mean 4.3 mmHg AV Area 2.3 cm MV Gradient Peak 4.5 mmHg MV Mean 1.6 mmHg MV Area cm COMMENTS: Link Assembler: 1 RINKU PALACIOSOE Apprentice Cosmetologist: 3 Dr. Schwartz TAPE# PACS Pericardial Effusion N DATE OF SERVICE: Adequate 2D, color flow imaging, spectral Doppler, and M-Mode. Borderline LVH. LV internal dimensions are dilated. LV shows mild global hypo with EF lower limits of normal to mildly reduced at 45% to 50%. Aortic valve is tricuspid. No evidence of stenosis by Doppler interrogation. Left atrium is dilated at 5.1 cm. Mitral valve shows no prolapse. Trace MR. Right-sided chambers are grossly normal. Trace TR. ECHOCARDIOGRAM REPORT [id number] APARNA ADLER TRANSINT:[id number] Voice Confirmation ID: [id number] DOCUMENT ID: [id number] JACQUELIN FERNANDEZ MD CC: [id number] DICTATION DATE: 03/22/20 1309 DEPUTY INSURANCE COMMISSIONER: 03/22/20 190 DIS IN 03/21/20 [place] [id number] [place] [id number]
--- NOTE | ~2020-03-20 | OP ---
PATIENT NAME: APARNA ADLER MEDICAL RECORD: [id number] :57 LOCATION:D. D.2114 ADMISSION DATE:03/20/20 SURGEON: JACQUELIN FERNANDEZ MD DATE OF OPERATION: 03/21/2020 PROCEDURE: Left heart catheterization, selective coronary angiography, right radial approach. CATHETERS: Radial sheath, Brighton catheter. The procedure was well tolerated. The patient returned to the ulloa, sheath removed. TR band was placed. FINDINGS: Left ventriculography in 30-degree MOCTEZUMA view: Normal wall motion and normal systolic function. CORONARY ANATOMY: LEFT MAIN: Left main is free of disease. LAD: Distal 1/3 has about 80% stenosis. Again, this is quite distal. The diagonal, previous diagonal stent itself has an 80% stenosis with some thrombus noted, best seen in the MOCTEZUMA cranial view. CIRCUMFLEX: Free of disease. RIGHT CORONARY ARTERY: Luminal irregularities, nothing flow obstructive. PLAN: Intervention of the LAD diagonal momentarily. DESCRIPTION OF PROCEDURE: Using indwelling sheath, XB LAD guiding catheter provided good guide catheter support. The first diagonal stent was addressed with a 2.5 x 12 mm balloon up to 10 atmospheres for 45 seconds, excellent resolution of restenosis and resolution of thrombus with no significant residual. Next, the wire was placed distally in the LAD and is followed by the same 2.5 x 12 balloon up to 10 atmospheres, showed excellent resolution, de alejandra 80% stenosis, no significant residual. KOLBY flow was 3 throughout the procedure. Heparin and Integrilin were used during the case. Sheath was closed with TR band. IMPRESSION: 1. Successful WARRANTY MANAGER to diagonal of restenosis stent. 2. Successful PTCA to a distal LAD lesion. TRANSINT:[id number] Voice Confirmation ID: [id number] DOCUMENT ID: [id number] JACQUELIN FERNANDEZ MD CC: [id number] DICTATION DATE: 03/21/20 1103 TOWER DIRECTOR: 03/21/20 1642 ADM IN [facility] [address] [place] [address]
--- NOTE | ~2020-03-20 | HEMODYNAMI ---
PATIENT:APARNA ADLER MEDICAL RECORD: [id number] : 57 LOCATION:[facility] D.2114 ADMISSION DATE: 03/20/20 Generatedon:03/21/202010:48 Patient name: APARNA ADLER Patient #: [id number] SSN: [id number] : 1955 Date of study: 03/21/2020 Page: Of Hemodynamic Procedure Report Patient Data Patient Demographics Procedure consent was obtained First Name: APARNA Gender: Male Last Name: VITOR : 1955 Patient #: [id number] Age: 65 year(s) Race: SSN: [id number] Additional ID: [id number] Contact details [address]: [address] [place] [address] State: [place] City: [place] Zip code: [address] Past Medical History Allergies Allergen Reaction Date Comments Reported Other allergy 06/10/2019 statins Other allergy 03/21/2020 Admission Admission Data Admission Date: 03/20/2020 Admission Time: 20:45 Room #: D.2114 Lab Results Lab Result Date: 03/21/2020 Lab Result Time: 0:00 Biochemistry Name Units Result Min Max BUN mg/dl 21 --(----)-* 7 18 Creatinine mg/dl 1.1 --(--*-)-- 0.6 1.3 eGFR ml/min 70.26114 *-(----)-- 90 120 NONAFRICAN CBC Name Units Result Min Max Hemoglobin g/dl 14.7 --(-*--)-- 13.5 17.5 Procedure Procedure Types Cath Procedure Diagnostic Procedure C [facility] w/Coronaries Sedation Charges Moderate Sedation up to 30 minutes PCI Procedure PTCA PTCA Initial Hemochron ACT Test Procedure Description Procedure Date Procedure Date: 03/21/2020 Procedure Start Time: 10:20 Procedure End Time: 10:45 Procedure Staff Name Function Polo Bautista MD Performing Physician Nelly Vogel RT Monitor Radha Espinoza RT Scrub Mary Rivas RN Nurse Procedure Data Cath Procedure Fluoroscopy Diagnostic fluoroscopy Total fluoroscopy Time: 7.4 time: 7.4 min min Diagnostic fluoroscopy Total fluoroscopy dose: dose: 1501 mGy 1501 mGy Contrast Material Contrast Material Type Amount (ml) Isovue 300 106 Entry Location Entry Primary Successful Side Size Upsize Upsize Entry Closure Mistry ccessful Closure Location (Fr) 1 (Fr) 2 (Fr) Remarks Device Remarks Radial Right 6 Fr Mechanical artery Short Compression Estimated blood loss: 5 ml Diagnostic catheters Device Type Used For End Catheter Placement DIAGNOSTIC Severy 110cm 5 Procedure Fr catheter ([id number]) Procedure Complications No complications Procedure Medications Medication Administration Route Dosage 0.9% NaCl I.V. 100 ml/hr Oxygen etCO2 Nasal cannula 2 l/min Lidocaine 2% added to field 20 Heparin Flush Bag added to field 2 bags (1000units/500ml NS) Radial Cocktail added to field 1 syringe (Verapamil 2mg/Nitro 400mcg/Heparin 1500units) Versed I.V. 2 mg Fentanyl I.V. 50 mcg Versed I.V. 2 mg Fentanyl I.V. 50 mcg Heparin Bolus I.V. 5000 units Integrilin (Bolus I.V. 11.3 ml 2mg/ml) Integrilin (Bolus wasted 8.7 ml 2mg/ml) Integrilin Drip I.V. drip 10 ml/hr (75mg/100ml) Plavix P.O. 600 mg Hemodynamics Rest HGB: 14.7 (g/dl) Heart Rate: 59 (bpm) Pressure Samples Time Site Value (mmHg) Purpose Heart Use Rate(bpm) 10:22 LV 108/50,31 Snapshot 96 Gradients Valve Time Site Site Mean SEP/DFP Peak To Heart Use 1 2 (mmHg) (sec/min) Peak Rate (mmHg) (bpm) Aortic 10:22 LV AO 83 Snapshots Pre Cath Intra NCS Post Cath Vital Signs Time Heart Resp SPO2 etCO2 NIBP (mmHg) Rhythm Pain Sedation Rate (ipm) (%) (mmHg) Status Level (bpm) 10:09:50 59 13 97 0.7 164/100(136) NSR 0 (11) 10(A) , No pain 10:14:25 61 13 97 18.6 158/99(126) NSR 0 (11) 10(A) , No pain 10:19:01 56 11 98 26.9 142/87(122) SB 0 (11) 10(A) , No pain 10:23:34 58 16 97 24.7 137/81(106) SB 0 (11) 9(A) , No pain 10:28:00 69 12 98 0 141/91(119) NSR 0 (11) 9(A) , No pain 10:32:28 61 11 97 11.2 148/86(116) NSR 0 (11) 9(A) , No pain 10:36:49 57 11 98 18.6 143/93(107) SB 0 (11) 9(A) , No pain 10:41:13 59 13 98 20.9 134/92(113) SB 0 (11) 10(A) , No pain Medications Time Medication Route Dose Verified Delivered Reason Not es Effectiveness by by 10:08:30 0.9% NaCl I.V. 100 Polo Mary used for ml/hr LilyRodolfo Rivas procedure MD ARGUETA 10:08:36 Oxygen etCO2 2 l/min Polo Mary used for Nasal [facility] procedure cannula MD ARGUETA 10:08:41 Lidocaine 2% added 20ml Polo Silvaory for local to vial [facility] anesthetic field MD PONCE 10:08:49 Heparin Flush added 2 bags Polo Cuellar used for Bag to [facility] procedure (1000units/500ml field MD PONCE NS) 10:08:55 Radial Cocktail added 1 Polo Polo used for (Verapamil to syringe [facility] procedure 2mg/Nitro field MD PONCE 400mcg/Hepari 10:14:32 Versed I.V. 2 mg Polo Mary for sedation St Rodolfo Rivas MD, RN 10:14:41 Fentanyl I.V. 50 mcg Polo Mary for sedation St Rodolfo Rivas MD, RN 10:20:49 Versed I.V. 2 mg Polo Mary for sedation St Rodolfo Rivas MD, RN 10:20:55 Fentanyl I.V. 50 mcg Polo Mary for sedation St Rodolfo Rivas MD, RN 10:31:34 Heparin Bolus I.V. 5000 Polo Mary for betsy ified units [facility] anticoagulation with Dr. MD ARGUETA Lockett 10:31:52 Integrilin I.V. 11.3 ml Polo Mary for (Bolus 2mg/ml) St Rodolfo Rivas antiplatelet MD RN therapy 10:37:05 Integrilin wasted 8.7 ml Polo meier (Bolus 2mg/ml) St Rodolfo Rivas antiplatelet RN therapy 10:37:10 Integrilin Drip I.V. 10 Polo Hernandez for (75mg/100ml) drip ml/hr St Rodolfo Rivas antiplatelet RN therapy 10:37:21 Plavix P.O. 600 mg Polo Hickman antiplatelet RN therapy Procedure Log Time Note 9:44:27 Informed consent obtained and on chart 9:44:45 Procedure Status Urgent Heart Cath (IP). 9:44:48 Time tracking: Regular hours (M-F 7:00 - 5:00) 9:44:48 Mary Rivas RN sent for patient. Start room use. 9:44:52 Plan of Care:Hemodynamics will remain stable., Cardiac rhythm will remain stable., Comfort level will be maintained., Respiratory function will remain adequate., Patient/ family verbilizes understanding of procedure., Procedure tolerated without complication., Recovers from procedure without complications.. 9:44:59 H&P Date Dictated: 03/21/2020 ER History on chart.. 9:58:22 Pre-procedure instructions explained to patient. 9:58:41 Family unavailable. 9:58:44 Patient NPO since Midnight. 9:58:56 Patient allergic to Other allergy 9:59:00 Is the patient allergic to Iodine/contrast media? No. 9:59:02 Was the patient premedicated? Yes 9:59:11 Patient diabetic? Yes. 9:59:12 If diabetic: On Metformin? Yes 9:59:17 If on Metformin: Last Dose? 03/20/2020 9:59:24 Snore? Yes 9:59:25 Sleep apnea? No 9:59:32 Dentures? Yes tight 9:59:42 Is patient on blood thinner?No 9:59:48 Patient pain scale 0/10 ?. 9:59:59 IV patent on arrival in left forearm with 0.9% NaCl at KVO. 10:00:59 Lab Result : eGFR NONAFRICAN 70.42030 ml/min 10:00:59 Lab Result : Hemoglobin 14.7 g/dl 10:00:59 Lab Result : BUN 21 mg/dl 10:00:59 Lab Result : Creatinine 1.1 mg/dl 10:01:24 Lab results completed and on chart. 10:01:28 Right Radial & Right Groin area was prepped with chlora-prep and draped in sterile fashion 10::29 Alarms reviewed by R. N. 10::30 Physician paged 10::30 Sharps counted by scrub and verified by R.N. 10:08:19 Vital chart was started 10:08:30 0.9% NaCl 100 ml/hr I.V. was administered by Mary Rivas RN; used for procedure; Verbal order read back and verified. 10:08:36 Oxygen 2 l/min etCO2 Nasal cannula was administered by Mary Rivas RN; used for procedure; Verbal order read back and verified. 10:08:41 Lidocaine 2% 20ml vial added to field was administered by Polo Bautista MD; for local anesthetic; Verbal order read back and verified. 10:08:49 Heparin Flush Bag (1000units/500ml NS) 2 bags added to field was administered by Polo Bautista MD; used for procedure; Verbal order read back and verified. 10:08:55 Radial Cocktail (Verapamil 2mg/Nitro 400mcg/Heparin 1500units) 1 syringe added to field was administered by Polo Bautista MD; used for procedure; Verbal order read back and verified. 10:13:23 Physician arrived 10:13:24 --------ALL STOP TIME OUT------ 10:13:25 Final Timeout: patient, procedure, and site verified with staff and physician. All members of the team are in agreement. 10:13:27 Right Radial & Right Groin site verified by team. 10:13:31 Fire Safety Assessment: A--An alcohol-based skin anteseptic being used preoperatively., C--Open oxygen or nitrous oxide is being used., D--An ESU, laser, or fiber-optic light is being used. 10:13:37 Physical assessment completed. ASA score P 2 - A patient with mild systemic disease as per Polo Bautista MD. 10:13:46 2) 60-89 Mildly reduced kidney function, and other findings (as for stage 1) point to kidney disease. 10:13:50 Maximum allowable contrast dose (3.7 X eGFR X 0.75)197 ml. 10:13:56 Sedation plan: IV Moderate Sedation Medication:Versed, Fentanyl 10:14:08 Warm blankets applied, and lan hugger turned on for patient comfort. 10:14:09 ECG and BP/O2 sat monitors applied to patient. 10:14:09 Correct patient and procedure confirmed by team. 10:14:10 Baseline sample Acquired. 10::17 Rhythm: sinus rhythm 10::19 Full Disclosure recording started 10:14:32 Versed 2 mg I.V. was administered by Mary Rivas RN; for sedation; Verbal order read back and verified. 10:14:41 Fentanyl 50 mcg I.V. was administered by Mary Rivas RN; for sedation; Verbal order read back and verified. 10:17:14 Use device set Radial Dx or PCI 10:19:40 Procedure started. 10:20:00 Local anesthetic to right radial artery with Lidocaine 2% by Polo Bautista MD.INITIAL ACCESS ONLY 10:20:19 A 6 Fr Short sheath was inserted into the Right Radial artery 10:20:24 Medline Cath Pack (PASP21119) opened to sterile field. 10:20:24 ACIST Syringe (06702) opened to sterile field. 10:20:25 ACIST Hand Control (89275) opened to sterile field. 10:20:25 Bag Decanter (2002S) opened to sterile field. 10:20:26 Tegaderm 4 x 4 (1626W) opened to sterile field. 10:20:26 ACIST Manifold (28637) opened to sterile field. 10:20:27 MBrace Wrist Support ([id number]) opened to sterile field. 10:20:28 NEEDLE Cook 21G 4cm Radial (L46528) opened to sterile field. 10:20:30 EMERALD Guide Wire (979-600) opened to sterile field. 10:20:32 SHEATH 6FR RAIN (4146568) opened to sterile field. 10:20:49 Versed 2 mg I.V. was administered by Mary Rivas RN; for sedation; Verbal order read back and verified. 10:20:55 Fentanyl 50 mcg I.V. was administered by Mary Rivas RN; for sedation; Verbal order read back and verified. 10:21:13 A DIAGNOSTIC Severy 110cm 5 Fr catheter (614909) was advanced over the wire and used for Procedure. 10:21:20 J wire advanced. 10:22:08 LV angiography performed. 10:22:51 EF : 50 % 10:23:01 LCA angiography performed. 10:24:44 RCA angiography performed. 10:25:24 Catheter removed. 10::47 Proceeding to intervention. 10::34 6 Fr XBLAD3.5 guide catheter was inserted over the wire 10:28:42 Whisper wire advanced. 10::59 Wire advanced across lesion. :31:34 Heparin Bolus 5000 units I.V. was administered by Mary Rivas RN; for anticoagulation; verified with Dr. Schwartz Verbal order read back and verified. 10:31:52 Integrilin (Bolus 2mg/ml) 11.3 ml I.V. was administered by Mary Rivas RN; for antiplatelet therapy; Verbal order read back and verified. 10:34:43 Inflate balloon Inflation number: 1 A EMERGE OTW 2.5 x 12 balloon ([id number]) was prepped and advanced across the 1st Diag 80, then inflated to 10 SUSANNE for 0:13 (min:sec) . 10:35:18 Inflation number: 2 The EMERGE OTW 2.5 x 12 balloon ([id number]) was reinflated across the 1st Diag , to 10 SUSANNE for 0:18 (min:sec) . 10:37:05 Integrilin (Bolus 2mg/ml) 8.7 ml wasted was administered by Mary Rivas RN; for antiplatelet therapy; Verbal order read back and verified. 10:37:10 Integrilin Drip (75mg/100ml) 10 ml/hr I.V. drip was administered by Mary Rivas RN; for antiplatelet therapy; Verbal order read back and verified. 10:37:21 Plavix 600 mg P.O. was administered by Mary Rivas RN; for antiplatelet therapy; Verbal order read back and verified. 10:38:34 Wire redirected to lad. 10:38:50 Inflation number: 1 The EMERGE OTW 2.5 x 12 balloon ([id number]) was reinflated across the Mid LAD 80, to 10 SUSANNE for 0:10 (min:sec) . 10:39:07 Inflation number: 2 The EMERGE OTW 2.5 x 12 balloon ([id number]) was reinflated across the Mid LAD , to 10 SUSANNE for 0:12 (min:sec) . 10:41:17 ZEPHYR LARGE TR BAND (511493) opened to sterile field. 10:41:25 Balloon removed over the wire. 10:41:26 Wire removed. 10:41:27 Guide catheter removed. 10:41:42 Sheath removed intact; hemostasis achieved with Mechanical Compression to the Right Radial artery. 10:41:46 Procedure ended.(Physican Out) 10:42:01 Fluoroscopy time 07.40 minutes. 10:42:05 Fluoroscopy dose: 1501 mGy 10:42:05 Flurop Dose total: 1501 10:42:12 Dose Area Product 36078 mGy/cm. 10:42:18 Contrast amount:Isovue 300 106ml. 10:42:21 Maximum allowable dose exceeded? No. 10:42:23 Sharps counted by scrub and verified by R.N. 10:42:29 [place]on band inflated with 10cc of air. 10:42:31 Insertion/operative site no bleeding no hematoma. 10:42:37 Post Procedure Pulses reassessed and unchanged 10:42:44 Post-procedure physical assessment completed. ASA score P 3 - A patient with severe systemic disease as per Polo Bautista MD. 10:42:48 Post procedure rhythm: sinus rhythm 10:42:51 Estimated blood loss: 5 ml 10:42:53 Post procedure instruction explained to patient.Patient verbalizes understanding. 10:44:04 Procedure type changed to Cath procedure, Diagnostic procedure, LHC, C w/Coronaries, Sedation Charges, Moderate Sedation up to 30 minutes, PCI procedure, PTCA, PTCA Initial, Hemochron ACT Test 10:44:07 Procedure and supply charges have been captured, reviewed, submitted and are correct. 10:44:31 Procedure Complication : No complications 10:44:33 Vital chart was stopped 10:44:42 [facility] Findings: MVD- PCI performed (see procedure note) 10:44:53 See physician's report for complete and final results. 10:44:58 Report given to [facility]. 10:45:06 Patient transfered to [facility] with Bed. 10:45:08 Full Disclosure recording stopped 10:45:08 Procedure ended. 10:45:11 End room use (Document Last) Intervention Summary Intervention Notes Time ActionType Lesion and Equipment Action# Pressure Duration Attributes Used 10:34:43 Inflate 1st Diag EMERGE OTW 1 10 00:14 balloon 2.5 x 12 balloon ([id number]) 10:35:18 Reinflate 1st Diag EMERGE OTW 2 10 00:18 balloon 2.5 x 12 balloon ([id number]) 10:38:50 Reinflate Mid LAD EMERGE OTW 1 10 00:10 balloon 2.5 x 12 balloon ([id number]) 10:39:07 Reinflate Mid LAD EMERGE OTW 2 10 00:13 balloon 2.5 x 12 balloon ([id number]) Device Usage Item Name Manufacture Quantity Catalog Number Hospital Part Current Tx nimal Lot# / Charge Number Stock Stock Serial# Code ACIST Acist 1 62485 868101 115556 [id number] 20 Syringe Medical (31851) Systems Inc Medline Cath Medline 1 [id number] 070643 59580 394452 5 Pack ([id number]) Bag Decanter Microtek 1 2001S 949195 41325 500669 5 (2001S) Medical Inc. ACIST Hand Acist 1 41174 159718 514684 337731 5 Control Medical (10470) Systems Inc ACIST Acist 1 91346 986747 055353 779224 5 Manifold Medical (93889) Systems Inc Tegaderm 4 x 3M 1 1626W 294052 525230 129816 5 4 (1626W) MBrace Wrist Advanced 1 140-0250-00 099139 58905 352908 5 Support Vascular (252729186) Dynamics NEEDLE Cook Cook Medical 1 [id number] 261514 988325 686636 5 21G 4cm Radial (L00240) EMERALD Cardinal 1 502-455 519078 110932 451795 5 Guide Wire Health (502-455) SHEATH 6FR Cardinal 1 4203417 325946 1258223 383108 5 [facility] (8476422) DIAGNOSTIC Terumo 1 40-6705 934769 875479 580287 5 Severy 110cm 5 Fr catheter (819975) EMERGE OTW Garfield 1 [id number] 727280 138979 128189 5 [id number] 2.5 x 12 Scientific balloon (1975887483) ZEPHYR LARGE Cardinal 1 969935 977923 8732556 378726 5 TR BAND [place] (499427) Signature Audit [place] Stage Time Signature Unsigned Intra-Procedure 03/21/2020 Nelly Vogel 10:47:36 AM RT(R) Intra-Procedure 03/21/2020 Mary Rivas 10:48:20 AM RN Intra-Procedure 03/21/2020 Polo Tomlinson 10:48:52 AM Rodolfo PONCE [facility] [address] [place] [address]
[~2020-03-20 19:39] MED LIST: BAYER CHEWABLE81 MG PO; CARDURA2 MG PO; FEXOFENADINE HC60 MG PO; LOSARTAN/HCT TAB 100; LOSARTAN/HCT TAB 100 PO; METFORMIN HCL500 M1 PO; MIRAPEX0.5 MG PO; MOBIC7.5 MG PO; PLAVIX75 MG PO; TENORMIN25 MG PO
--- NOTE | 2020-03-20 20:03 | NUR ---
PT STATE PAIN IS 5/10 AFTER SECOND NITRO. 3'D NITRO GIVEN.
[2020-03-20 20:13] LABS: BASOPHILS 0.3 % (0-2); EOSINOPHILS 1.9 % (0-7); HEMATOCRIT 43.1 % (42.0-54.0); HEMOGLOBIN 14.7 g/dL (13.5-17.5); IMMATURE GRANULOCYTES 0.3 % (0-5); LYMPHOCYTES 29.2 % (15-50); MCH 30.1 pg (26.0-34.0); MCHC 34.1 g/dL (31.0-37.0); MCV 88.1 fL (80.0-100.0); MEAN PLATELET VOLUME 10.3 fL (7.4-10.4); MONOCYTES 10.1 % (2-11); NEUTROPHILS 58.2 % (40-80); RBC 4.89 10x6/uL (4.20-6.10); RDW 13.1 % (11.5-14.5); WBC 9.9 10x3/uL (4.8-10.8)
[2020-03-20 20:15] LABS: CALC OSMOLALITY 278 mosm/kg (275-300); CALCIUM 9.1 mg/dL (8.5-10.1); CARBON DIOXIDE 25.7 mmol/L (21.0-32.0); CHLORIDE - SERUM 102 mmol/L (98-107); CREATININE - SERUM 1.1 mg/dL (0.6-1.3); GLUCOSE 139 mg/dL (74-106); POTASSIUM - SERUM 3.5 mmol/L (3.5-5.1); SODIUM 137 mmol/L (136-145); UREA NITROGEN 21 mg/dL (7-18); eGFR NON AFRICAN AMERICAN 71 mL/min (90-120)
[2020-03-20 20:19] LABS: PLATELET COUNT 231 10x3/uL (130-400)
[2020-03-20 20:25] LABS: ALBUMIN 3.7 g/dL (3.4-5.0); ALKALINE PHOSPHATASE 65 U/L (30-120); ALT (SGPT) 44 U/L (10-68); BILIRUBIN - TOTAL 0.34 mg/dL (0.2-1.3); CKMB 19.7 U/L (0.0-3.6); CREATINE KINASE 429 UL (21-232); MAGNESIUM - SERUM 1.9 mg/dL (1.8-2.4); PROTEIN - SERUM 7.5 g/dL (6.4-8.2); TROPONIN-I < 0.017 ng/mL (0.000-0.060)
[2020-03-20 20:26] LABS: INR 0.94 (0.85-1.17); PROTIME 12.5 SECONDS (11.6-15.0)
[2020-03-20 21:24] VITALS: BP 138/90
--- NOTE | 2020-03-20 22:00 | NUR ---
ADMIT TO ROOM 2114 FROM ER VIA STRETCHER. PT IS ALERT/ORIENTED AND AMBULATORY. ABLE TO WALK FROM STRETCHER TO BED. TELEMETRY INITIATED SHOWING SR 60. ADMISSION ASSESSMENT AND HISTORY COMPLETED. HOME MEDS REVIEWED. PLAN OF CARE INITIATED.
[2020-03-20 23:29] VITALS: BP 124/72; Ht 188 cm; Wt 129.5 kg
[2020-03-21 04:00] VITALS: BP 113/71
--- NOTE | 2020-03-21 05:21 | NUR ---
PT HAS SLEPT THROUGH THE NIGHT. EKG PERFORMED. PT STATES NO CHEST PAIN. CPOC.
[2020-03-21 08:40] LABS: BASOPHILS 0.2 % (0-2); EOSINOPHILS 0.3 % (0-7); HEMATOCRIT 42.3 % (42.0-54.0); HEMOGLOBIN 13.6 g/dL (13.5-17.5); IMMATURE GRANULOCYTES 0.2 % (0-5); LYMPHOCYTES 12.7 % (15-50); MCH 29.4 pg (26.0-34.0); MCHC 32.2 g/dL (31.0-37.0); MEAN PLATELET VOLUME 10.6 fL (7.4-10.4); NEUTROPHILS 80.6 % (40-80); PLATELET COUNT 202 10x3/uL (130-400); RBC 4.62 10x6/uL (4.20-6.10); RDW 13.6 % (11.5-14.5); WBC 9.6 10x3/uL (4.8-10.8)
[2020-03-21 08:53] LABS: ALT (SGPT) 40 U/L (10-68); CALC OSMOLALITY 282 mosm/kg (275-300); CALCIUM 8.3 mg/dL (8.5-10.1); CARBON DIOXIDE 28.3 mmol/L (21.0-32.0); CHLORIDE - SERUM 104 mmol/L (98-107); CHOL - HDL RATIO 4.9 ratio (2.3-4.9); CHOLESTEROL, TOTAL 131 mg/dL (0-200); CREATININE - SERUM 0.9 mg/dL (0.6-1.3); GLUCOSE 119 mg/dL (74-106); HDL CHOLESTEROL 27 mg/dL (32-96); LDL CHOLESTEROL 71 mg/dL (0-100); LDL-HDL RATIO 2.6 ratio (1.5-3.5); POTASSIUM - SERUM 3.5 mmol/L (3.5-5.1); SODIUM 140 mmol/L (136-145); TRIGLYCERIDE 169 mg/dL (30-200); UREA NITROGEN 22 mg/dL (7-18); eGFR NON AFRICAN AMERICAN 90 mL/min (90-120)
[2020-03-21 09:11] LABS: MCV 91.6 fL (80.0-100.0)
[2020-03-21 09:16] VITALS: BP 121/72
--- NOTE | 2020-03-21 09:50 | NUR ---
PRE-OP MEDS GIVEN AT THIS TIME. ALSO GAVE AM MEDS. PT A/O X4, RESP EVEN AND NONLABORED ON RA.RT HAND IV SL. MONITOR SHOWING SR WITH RATE OF 61. PT DENIES ANY NEEDS AT THIS TIME. CALL LIGHT IN REACH, NAD NOTED,W ILL CONTINUE TO MONITOR.
--- NOTE | 2020-03-21 09:55 | NUR ---
PT TO MUD JACK NOZZLEMAN.
--- NOTE | 2020-03-21 11:10 | NUR ---
RECEIVED PT BACK TO ROOM 2113. PT A/O X4, VITAL SIGNS STABLE, PLACED PT ON FREQUENT VITAL SIGNS. Z BAND TO RT WRIST. NO S/S OF BLEEDING OR HEMATOMA. PROVIDED PT WITH A CUP OF WATER. DENIES ANY OTHER NEEDS AT THIS TIME. CALL LIGHT IN REACH, NAD NOTED, WILLL CONTINUE TO MONITOR.
[2020-03-21 13:57] VITALS: BP 148/80
--- NOTE | 2020-03-21 14:08 | HP ---
PATIENT: APARNA ADLER MEDICAL RECORD: [id number] ACCOUNT: [id number] LOCATION:[address] : 57 ADMISSION DATE: 03/20/20 PCP: ROSY BENTLEY HISTORY AND PHYSICAL EXAMINATION DATE OF ADMISSION: 03/20/2020 CHIEF COMPLAINT: Chest pain. HISTORY OF PRESENT ILLNESS: This is a 65-year-old white male with a history of coronary artery disease with stents. He had acute onset of dull chest pain on day of admission. He states this feels like previous episode when he was found to have heart disease and needed stents. He denied any dyspnea on exertion or shortness of breath. He really did not have any diaphoresis until after he presented to the ER. He is admitted for further evaluation. PAST MEDICAL AND SURGICAL HISTORY: Coronary artery disease, type 2 diabetes, osteoarthritis. He gets every 3-month injections in his knees by Dr. Soni. PAST SURGICAL HISTORY: He had knee surgery in the past. He has stents to his LAD diagonal and left circumflex done in June 2019. ALLERGIES: HE IS ALLERGIC TO STATINS, THAT REALLY CAUSED A LOT OF MUSCLE ACHES AND PAINS. HOME MEDICATIONS: Include atenolol 25 mg once a day, he takes meloxicam 15 mg once a day p.r.n. when his arthritis really flares, he takes losartan/hydrochlorothiazide 100/12.5 once a day, doxazosin 2 mg once a day, metformin ER 500 mg once a day, he had been on Plavix but stopped around the end of December, and he was on aspirin but ran out a few days ago and has not taken it since. 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 FAMILY HISTORY: Significant for heart disease and cancer. HABITS: No tobacco, alcohol or drugs. REVIEW OF SYSTEMS: GENERAL: No major weight changes. HEENT: No particular sinus or allergy problems. RESPIRATORY: No history of emphysema or asthma. CARDIAC: See above history. He has had stents by Dr. Stephens. GASTROINTESTINAL: No significant problems there. GENITOURINARY: No significant problems there. MUSCULOSKELETAL: He has arthritic aches and pains, especially in his knees. NEUROLOGICAL: No migraines or seizures. PSYCHIATRIC: Denies depression or melancholia. PHYSICAL EXAMINATION: VITAL SIGNS: Temperature 98.1, pulse 73, respirations 14, blood pressure 113/71, O2 sat 97%. NEUROLOGIC: He is awake and alert, sitting on the side of the bed, no acute distress, no pain at this time. HISTORY AND PHYSICAL [id number] APARNA ADLER: Grossly within normal limits. NECK: Supple. No JVD or bruit. HEART: Regular rate and rhythm without murmur. LUNGS: Clear. ABDOMEN: Soft, obese, nontender. EXTREMITIES: No edema. LABORATORY AND DIAGNOSTIC DATA: CBC is normal. Basic metabolic panel is normal. INR 0.94, magnesium normal at 1.9. Liver functions were okay. CK is elevated at 429 MB is elevated at 19.7. Initial troponin was normal at less than 0.017. However, the second troponin did come back positive at 0.848 and the third one this morning at 0700 came back positive at 10.095. Chest x-ray just showed some mild atelectasis. EKG normal sinus rhythm. ASSESSMENT: Acute myocardial infarction in a patient with known history of coronary artery disease and stents. PLAN: Cardiology has seen the patient this morning and he will be taken to the superintendent geophysical laboratory today. Other tests or procedures as warranted. TRANSINT:[id number] Voice Confirmation ID: [id number] DOCUMENT ID: [id number] NEIL SHELDON MD at 1408 CC: [id number] DICTATION DATE: 03/21/[address] OPERATOR: 03/21/[address] [facility] [address] [place] [address]
[2020-03-21] MEDS ORDERED: PLAVIX75 MG PO (14:18)
--- NOTE | 2020-03-21 17:43 | NUR ---
PT LEFT UNIT VIA WHEELCHAIR, WITH ALL BELONGINGS, NAD NOTED.
[2020-03-21 17:51] VITALS: BP 142/84
== END 2020-03-21 17:49 | disposition home or self-care (01) ==
LOC: D.ER 19:39 → OBSVTIME 20:45 → D.M2 20:45
PROVIDERS: Family Medicine; Internal Medicine Interventional Cardiology; ADMIT Family Medicine; ATTEND Family Medicine
DX: I21.4 Non-ST elevation (NSTEMI) myocardial infarction (principal); I10 Essential (primary) hypertension; E11.9 Type 2 diabetes mellitus without complications; E78.5 Hyperlipidemia, unspecified; I25.10 Atherosclerotic heart disease of native coronary artery without angina pectoris